=== PATIENT | female | born 1985 | race Caucasian/White ===

== ENCOUNTER 2016-11-07 12:07 | Emergency (ER) | payer OTHER, SELFPAY | END 2016-11-07 12:34 | disposition home or self-care (01) | LOC: NAV ERS 12:07 | DX: J20.9 Acute bronchitis, unspecified (principal); F32.9 Major depressive disorder, single episode, unspecified; Z87.891 Personal history of nicotine dependence; Z79.899 Other long term (current) drug therapy | CPT/HCPCS: 99283 ==